=== PATIENT | female | born 1995 | race Caucasian/White ===

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

== ENCOUNTER 2017-02-10 21:36 | Emergency (ER) | payer MEDICAID, OTHER ==
[~2017-02-10] VITALS: Ht 165.1 cm; Wt 55.9 kg
[2017-02-10] MEDS ORDERED: ACETAMINOPHEN 325 MG TABLET PO ONE (22:45)
[2017-02-10 22:52] VITALS: BP 127/64
== END 2017-02-10 22:58 | disposition home or self-care (01) ==
LOC: EMS 21:38
DX: S70.02XA Contusion of left hip, initial encounter (principal); S00.511A Abrasion of lip, initial encounter; Y04.0XXA Assault by unarmed brawl or fight, initial encounter; Y93.89 Activity, other specified; Y92.89 Other specified places as the place of occurrence of the external cause; Y99.8 Other external cause status
CPT/HCPCS: 72170; 99284

== ENCOUNTER 2023-01-09 12:37 | Emergency (ER) | payer OTHER ==
[~2023-01-09] VITALS: Ht 167.6 cm; Wt 113.6 kg
[2023-01-09 12:45] VITALS: TEMP 98.4
[2023-01-09] MEDS ORDERED: ACET-66 PO (14:50)
[2023-01-09] MEDS ORDERED: CORTSUSP AU (14:50)
[2023-01-09 14:56] VITALS: BP 122/77; PULSE 78; RESP 16
== END 2023-01-09 14:58 | disposition home or self-care (01) ==
LOC: EMS 12:44
DX: H60.92 Unspecified otitis externa, left ear (principal)
CPT/HCPCS: 99283

== ENCOUNTER 2023-03-25 02:15 | Emergency (ER) | payer OTHER ==
[~2023-03-25] VITALS: Ht 167.6 cm; Wt 90.9 kg
[~2023-03-25 02:15] MED LIST: ACET-66 PO; CORTSUSP AU
[2023-03-25 02:21] VITALS: TEMP 97.8
[2023-03-25] MEDS ORDERED: DEXAMETHASONE SOD PHOS 4 MG/ML 5 ML VIAL IVP ONE (03:30)
[2023-03-25] MEDS ORDERED: KETOROLAC TROMETHAMINE 30 MG/ML VIAL IVP ONE (03:30)
[2023-03-25] MEDS ORDERED: ONDANSETRON HCL 4 MG/2 ML VIAL IVP ONE (03:30)
[2023-03-25 03:36] LABS: BASOPHILS % (AUTO) 0.3 % (0.0-2.0); EOSINOPHILS % (AUTO) 1.4 % (1.0-6.0); HEMATOCRIT 43.2 % (36-46); HEMOGLOBIN 13.7 g/dL (12.0-16.0); LYMPHOCYTES # (AUTO) 2.1 K/uL (1.0-4.8); LYMPHOCYTES % (AUTO) 16.7 % (22.0-44.0); MEAN CORPUSCULAR HEMOGLOBIN 26.6 pg (26.0-34.0); MEAN CORPUSCULAR HGB CONC 31.8 G/dL (31.0-37.0); MEAN CORPUSCULAR VOLUME 84 fL (80-100); MONOCYTES # (AUTO) 0.7 K/uL (0.1-1.0); MONOCYTES % (AUTO) 5.3 % (2.0-9.0); NEUTROPHILS # (AUTO) 9.8 K/uL (1.8-7.7); NEUTROPHILS % (AUTO) 76.3 % (40.0-70.0); PLATELET COUNT (AUTO) 320 K/uL (150-450); RED BLOOD CELL COUNT(AUTO) 5.17 MIL/uL (4.00-5.20); WHITE BLOOD COUNT (AUTO) 12.8 K/uL (4.5-11.0)
[2023-03-25 03:44] LABS: ANION GAP 12 mmol/L (8-16); CARBON DIOXIDE 26 mmol/L (22-29); CHLORIDE 101 mmol/L (98-107); CREATININE 0.77 mg/dL (0.60-1.30); GLOMERULAR FILTR. RATE CALC > 60 mL/min (>60); GLUCOSE,RANDOM 90 mg/dL (70-110); POTASSIUM 3.7 mmol/L (3.5-5.1); SODIUM SERUM 139 mmol/L (136-145); UREA NITROGEN, BLOOD 12 mg/dL (7-18)
[2023-03-25 03:50] LABS: ALANINE AMINOTRANSFERASE 33 U/L (12-78); ALBUMIN 4.3 g/dL (3.4-5.0); ALKALINE PHOSPHATASE 84 U/L (46-116); ASPARTATE AMINOTRANSFERASE 19 U/L (15-37); BILIRUBIN,TOTAL 0.5 mg/dL (0.1-1.0); TOTAL PROTEIN, SERUM 8.9 g/dL (6.4-8.2)
[2023-03-25 04:24] VITALS: BP 100/46; PULSE 72; RESP 19
[2023-03-25] MEDS ORDERED: IBUP-1492 PO (05:07)
[2023-03-25] MEDS ORDERED: ONDA-104 PO (05:07)
== END 2023-03-25 05:17 | disposition home or self-care (01) ==
LOC: EMS 02:16
DX: G43.909 Migraine, unspecified, not intractable, without status migrainosus (principal)
CPT/HCPCS: 99284; 96374; 96375; 80053; 84702; 85025; 36415; J1100; J1885; J2405

== ENCOUNTER 2023-07-06 16:54 | Emergency (ER) | payer OTHER ==
[~2023-07-06] VITALS: Ht 167.6 cm; Wt 210.0 kg
[~2023-07-06 16:54] MED LIST changes: +IBUP-1492 PO; +ONDA-104 PO
[2023-07-06 17:03] VITALS: TEMP 97.7
[2023-07-06 17:45] VITALS: PULSE 105; RESP 20; O2SAT 94
[2023-07-06] MEDS: ALBUTEROL SULFATE HFA 90 MCG/PUFF 8 GM INHALER IH ONE (17:46)
[2023-07-06 17:58] VITALS: BP 128/86; PULSE 110; RESP 22
== END 2023-07-06 18:22 | disposition home or self-care (01) ==
LOC: EMS 16:58
DX: J45.901 Unspecified asthma with (acute) exacerbation (principal)
CPT/HCPCS: 99284; 94640; J3535

== ENCOUNTER 2024-02-10 23:39 | Emergency (ER) | payer OTHER ==
[~2024-02-10] VITALS: Ht 165.1 cm; Wt 111.4 kg
[2024-02-11 00:30] LABS: APPEARANCE,URINE HAZY (CLEAR); BILIRUBIN,URINE NEGATIVE (NEGATIVE); COLOR,URINE YELLOW (YELLOW); GLUCOSE, URINE (UA) NEGATIVE (NEGATIVE); LEUKOCYTE ESTERASE ,URINE LARGE (NEGATIVE); NITRATE,URINE NEGATIVE (NEGATIVE); OCCULT BLOOD,URINE MODERATE (NEGATIVE); PROTEIN,URINE 30-70 mg/dL (NEGATIVE); SPECIFIC GRAVITIY, URINE 1.023 (1.003-1.030)
[2024-02-11 00:33] LABS: BACTERIA,URINE Few /HPF (None Seen)
[2024-02-11 00:34] LABS: SQUAMOUS EPITHELIAL CELL,UR Few /LPF (None Seen)
[2024-02-11 02:30] VITALS: TEMP 97.3
[2024-02-11] MEDS: CEPHALEXIN MONOHYDRATE 500 MG CAPSULE PO ONE (03:24)
[2024-02-11] MEDS ORDERED: CEPH-558 PO (03:44)
[2024-02-11] MEDS ORDERED: IBUP-1492 PO (03:44)
[2024-02-11 04:00] VITALS: BP 133/72; PULSE 71; RESP 18; O2SAT 96
== END 2024-02-11 04:47 | disposition home or self-care (01) ==
LOC: EMS 23:39
DX: S93.401A Sprain of unspecified ligament of right ankle, initial encounter (principal); X50.1XXA Overexertion from prolonged static or awkward postures, initial encounter; Y93.89 Activity, other specified; Y92.89 Other specified places as the place of occurrence of the external cause; Y99.8 Other external cause status; N39.0 Urinary tract infection, site not specified; J45.909 Unspecified asthma, uncomplicated
CPT/HCPCS: 81001; 84703; 87077; 87086; 87186; 99284; 73610-TC; Z7502; Z7610